=== PATIENT | female | born 1995 | race Asian ===

== ENCOUNTER 2020-04-12 21:35 | Emergency (ER) | payer OTHER ==
[~2020-04-12] VITALS: Ht 172.7 cm; Wt 59.0 kg
--- NOTE | 2020-04-12 21:55 | NUR ---
ED Nurse Note: pt walked into the ed due to abscess located on the inside of her left knee x 2days ago. pt stated , she has knee surgery a yeart ago. Vitals are stable .
[2020-04-12 21:56] VITALS: BP 124/81
--- NOTE | 2020-04-12 22:04 | Emergency Room Report ---
History of Present Illness General Chief Complaint: Skin Rash/Abscess Source: Patient Present Illness [facility] This is a 24-year-old female who had a previous ORIF of her left knee. She presents with chief complaint of redness and swelling. Onset 2 days ago. Now there is some blistering. Area is warm to the touch. Worse with walking. No trauma. No fever chills. Better with rest. Pain is 6 out of 10. Allergies: Coded Allergies: No Known Allergies (Unverified , 04/12/20) COVID-19 Screening Contact w/high risk pt: No Experienced COVID-19 symptoms?: No COVID-19 Testing performed [employer]: Yes - february 2020 COVID-19 Screening: Negative COVID-19 COVID-19 Testing Source: [facility] Patient History Past Medical History: see triage record, old chart reviewed Past Surgical History: none Pertinent Family History: other Social History: Denies: smoking Last Menstrual Period: february 2020 Immunizations: other Reviewed Nursing Documentation: PMH: Agreed; PSxH: Agreed Nursing Documentation-PMH Past Medical History: No History, Except For Review of Systems Eye: Denies: eye pain, blurred vision ENT: Denies: ear pain, nose congestion, throat swelling Respiratory: Denies: cough, shortness of breath Cardiovascular: Denies: chest pain, palpitations Gastrointestinal: Denies: abdominal pain, diarrhea, nausea, vomiting Musculoskeletal: Denies: back pain, joint pain Skin: Denies: rash Neurological: Denies: headache, numbness Endocrine: Denies: increased thirst, increased urine Hematologic/Lymphatic: Denies: easy bruising All Other Systems: negative except mentioned in HPI Physical Exam Vital Signs Date Time Temp Pulse Resp B/P (MAP) Pulse Ox O2 Delivery O2 Flow Rate FiO2 04/12/20 21:46 98.8 130 18 124/81 (95) 94 Room Air Vitals with tachycardia Sp02 EP Interpretation: reviewed, normal General Appearance: well appearing, no apparent distress, alert Head: normocephalic, atraumatic Eyes: bilateral eye PERRL, bilateral eye EOMI ENT: hearing grossly normal, normal pharynx Neck: full range of motion, supple, no meningismus Respiratory: chest non-tender, lungs clear, normal breath sounds Cardiovascular #1: regular rate, rhythm, no murmur Gastrointestinal: normal bowel sounds, non tender, no mass, no organomegaly, no bruit, non-distended Musculoskeletal: back normal, normal range of motion, gait/station normal, other - Left knee: On the medial aspect of her knee there is erythema. There is a fluctuant area of about 2 cm. This is right over her old surgical site. Knee is full range of motion however. No effusion. Psychiatric: mood/affect normal Procedures Incision and Drainage Incision and Drainage : Consent: Verbal Site: left knee Blade Size: 11 I & D Procedure: betadine prep, sterile drapes applied Wound Location: lower extremity - left knee Anesthesia: 1% Lidocaine Volume Anesthetic (ccs): 2 Patient Tolerated: Well Complications: None Progress Area cleaned with chlorhexidine initially and then Betadine. Local anesthetic with 1% lidocaine with epinephrine injected. I made a 1 cm incision. There is more mild of pus expressed. Patient felt better. Tolerated procedure without any problem. Dressing placed. Medical Decision Making Diagnostic Impression: Primary Impression: Cutaneous abscess of left knee ER Course Patient with superficial abscess to the left knee. No fracture dislocation. Heart rate is 110. No evidence of any septic joint or deep infection. Will discharge home. Other X-Ray Diagnostic Results Other X-Ray Diagnostic Results : X-Ray ordered: Xrays left knee # of Views/Limited Vs Complete: 3 View Indication: Pain EP Interpretation: Yes Interpretation: no dislocation, no soft tissue swelling, no fractures Impression: No acute disease Electronically Signed by: Isael Khanna MD Last Vital Signs Date Time Temp Pulse Resp B/P (MAP) Pulse Ox O2 Delivery O2 Flow Rate FiO2 04/12/20 21:46 98.8 130 18 124/81 (95) 94 Room Air Status: improved Disposition: HOME, SELF-CARE Condition: Stable Scripts Trimethoprim/Sulfamethoxazole 160/800* (BACTRIM DS TABLET*) 1 Each Tablet 1 TAB ORAL Q12H, #14 TAB 0 Refills Prov: Isael Khanna MD 04/12/20 Patient Instructions: Abscess Additional Instructions: Wound clean. Clean with hydrogen peroxide first and then apply antibiotic ointment. Follow-up with your doctor in 3 to 5 days for recheck if symptoms worsen. Return if worse. Isael Khanna MD Apr 12, 2020 22:04
[2020-04-12] MEDS ORDERED: Lidocaine 1% Plain 30 ml INJ ONE (22:15)
[2020-04-12] MEDS ORDERED: Bactrim-DS 1 tab ORAL ONE (22:15)
[2020-04-12] MEDS ORDERED: BACTRIM DS TAB1 EAC1 ORAL (22:23)
[2020-04-12 22:35] VITALS: BP 132/78
--- NOTE | 2020-04-12 22:35 | NUR ---
ER DISCHARGE NOTE: Patient is cleared to be discharged per ERMD, pt is aox4, on room air, with stable vital signs. pt was given dc and prescription instructions, pt was able to verbalize understanding, pt id band removed without complications. pt is able to ambulate with steady gait. pt took all belongings.
--- NOTE | 2020-04-13 15:52 | Diagnostic Imaging Report ---
Indication: Left knee pain Technique: 3 views of the left knee Comparison: None Findings: No suprapatellar effusion. No acute fracture. No dislocation. The joint spaces are preserved Impression: Negative
== END 2020-04-12 22:35 | disposition home or self-care (01) ==
LOC: EMR 22:00
DX: L02.416 Cutaneous abscess of left lower limb (principal); Z96.652 Presence of left artificial knee joint
CPT/HCPCS: 10060; 73562; 87070; 87181; 87205; 99283; J2001